=== PATIENT | female | born 2000 | race African-American/Black ===

== ENCOUNTER 2019-09-30 15:07 | Emergency (ER) | payer OTHER, SELFPAY ==
[2019-09-30 16:09] LABS: #Lymphocytes 1.7 thou/uL (1.20-3.40); #Monocytes 0.4 thou/uL (0.11-0.59); %Basophils 0.5 % (0.0-1.0); %Eosinophils 0.3 % (0.0-10.0); %Lymphocytes 20.4 % (28.0-48.0); %Monocytes 4.7 % (0.0-4.0); %Neutrophils 74.1 % (31.0-61.0); Hemoglobin 12.2 g/dL (12.0-16.0); Mean Corpuscular HGB CONC 33.4 g/dL (32.0-36.0); Mean Corpuscular Hemoglobin 28.6 pg (25.0-35.0); Mean Corpuscular Volume 85.6 fL (78.0-98.0); Mean Platelet Volume 6.2 fL (7.4-10.4); Platelet Count 290 thou/uL (130-400); RBC Distribution Width 12.1 % (11.5-14.5); Red Blood Cell (RBC) Count 4.26 mill/uL (4.00-5.20); White Blood Cell (WBC) Count 8.1 thou/uL (4.8-10.8)
[2019-09-30 16:11] LABS: BHCG - Serum POSITIVE (NEGATIVE); Pregs Control Background? CLEAR/WHITE (CLR/WHITE); Pregs Control Bar Appear? YES (CONTROL BAR)
[2019-09-30 16:33] LABS: ALT (SGPT) 29 U/L (8-55); AST (SGOT) 19 U/L (5-34); Albumin 4.3 g/dL (3.5-5.0); Alkaline Phosphatase 71 U/L (40-100); Anion Gap 12 mmol/L (10-20); BUN (Urea Nitrogen) 12 mg/dL (7.0-18.7); Bilirubin, Total 0.5 mg/dL (0.2-1.2); Calc. Creatinine Clearance 0 mL/min (70-130); Calcium 9.6 mg/dL (7.8-10.44); Carbon Dioxide 23 mmol/L (22-29); Chloride 107 mmol/L (98-107); Estimated GFR-MDRD Greater than 90; Globulin 3.1 g/dL (2.4-3.5); Glucose 124 mg/dL (70-105); Potassium 3.8 mmol/L (3.5-5.1); Protein, Total 7.4 g/dL (6.0-8.3); Sodium 138 mmol/L (136-145)
--- NOTE | 2019-09-30 19:50 | ULT ---
Pelvic ultrasound: 09/30/2019 COMPARISON: None HISTORY: 19-year-old female with pain TECHNIQUE: Multiplanar grayscale sonographic imaging of the pelvis obtained with transabdominal and e ndovaginal imaging. The ovaries were assessed with color flow and spectral analysis FINDINGS: Uterus measures 9.1 x 5.6 x 5.1 cm. Right ovary measures 3.5 x 2.6 x 1.8 cm and left ovary measures 4.3 x 3.3 x 2.5 cm. The ovaries demonstrate normal blood flow. Small volume free fluid is noted in the pelvic cul-de-sac. There is a small cyst within the left ovary measuring 2.6 x 2.4 x 2.1 cm. An intrauterine gestational sac is present. It appears to contain a yolk sac but no discrete po le at this time. No definite subchorionic hemorrhage. Gestational sac diameter of 9 mm correlates with a 5 week 5 day gestation. Estimated date of delivery would be 05/27/2020. IMPRESSION: Intrauterine gestational sac containing a yolk sac as above. Nonspecific small volume emelina e fluid. Ovaries demonstrate normal blood flow.
[2019-09-30 20:17] LABS: Bilirubin Negative (Negative); Blood, Urine Trace (Negative); Clarity Clear (Clear); Glucose, Urine (Dipstick) Normal (Negative); Leukocyte Negative Leu/uL (Negative); Nitrite Negative (Negative); Protein, Urine (Dipstick) Negative (Neg-Trace); RBC/HPF 0-3 HPF (0-3); Urobilinogen Normal mg/dL (Less than 2); WBC/HPF 0-3 HPF (0-3)
[2019-09-30 20:24] LABS: Bacteria/HPF None Seen HPF (None Seen)
[2019-10-02 01:16] LABS: Chlamydia by PCR Not Detected (NotDetected); GC by PCR Not Detected (NotDetected)
== END 2019-09-30 21:07 | disposition left against medical advice (07) ==
LOC: ERS 15:07
DX: O46.93 Antepartum hemorrhage, unspecified, third trimester (principal)
CPT/HCPCS: 36415; 76856; 80053; 81003; 81015; 84702; 84703; 85025; 86900; 86901; 87480; 87491; 87510; 87591; 87660

== ENCOUNTER 2019-10-12 12:55 | Emergency (ER) | payer SELFPAY ==
[2019-10-12 13:53] LABS: #Lymphocytes 1.4 thou/uL (1.20-3.40); #Monocytes 0.6 thou/uL (0.11-0.59); #Neutrophils 6.7 thou/uL (1.40-6.50); %Basophils 0.4 % (0.0-1.0); %Eosinophils 0.5 % (0.0-10.0); %Lymphocytes 16.1 % (28.0-48.0); %Monocytes 7.3 % (0.0-4.0); %Neutrophils 75.7 % (31.0-61.0); Hemoglobin 12.1 g/dL (12.0-16.0); Mean Corpuscular HGB CONC 34.4 g/dL (32.0-36.0); Mean Corpuscular Hemoglobin 29.2 pg (25.0-35.0); Mean Corpuscular Volume 85.1 fL (78.0-98.0); Mean Platelet Volume 6.4 fL (7.4-10.4); Platelet Count 303 thou/uL (130-400); RBC Distribution Width 11.9 % (11.5-14.5); Red Blood Cell (RBC) Count 4.12 mill/uL (4.00-5.20); White Blood Cell (WBC) Count 8.8 thou/uL (4.8-10.8)
[2019-10-12 14:08] LABS: ALT (SGPT) 25 U/L (8-55); AST (SGOT) 17 U/L (5-34); Albumin 4.5 g/dL (3.5-5.0); Alkaline Phosphatase 66 U/L (40-100); Anion Gap 15 mmol/L (10-20); BUN (Urea Nitrogen) 12 mg/dL (7.0-18.7); Bilirubin, Total 0.5 mg/dL (0.2-1.2); Calc. Creatinine Clearance 0 mL/min (70-130); Carbon Dioxide 21 mmol/L (22-29); Chloride 107 mmol/L (98-107); Estimated GFR-MDRD Greater than 90; Globulin 2.9 g/dL (2.4-3.5); Glucose 90 mg/dL (70-105); Potassium 3.7 mmol/L (3.5-5.1); Protein, Total 7.4 g/dL (6.0-8.3); Sodium 139 mmol/L (136-145)
--- NOTE | 2019-10-12 14:45 | ULT ---
EXAM: US Pelvic Transvag with Doppler PROVIDED CLINICAL HISTORY: Vaginal bleeding COMPARISON: None FINDINGS: A single live intrauterine gestation is documented, 5 weeks 5 days by crown-rump length. heart rate of 89 bpm was documented. There is a small amount of perigestational hemorrhage. Left ovarian corpus luteal cyst is demonstrated. Right ovary appears sonographically normal. Color Doppler and spe ctral analysis of the ovarian waveforms demonstrates normal flow bilaterally. There is a small amount of simple appearing free pelvic fluid. IMPRESSION: 1. Single live intrauterine gestation, 5 weeks 5 days by crown-rump length. 2. Small amount of perigestational hemorrhage. 3. bradycardia.
[2019-10-12 15:24] LABS: Bacteria/HPF 1+ HPF (None Seen); Bilirubin Negative (Negative); Blood, Urine 2+ (Negative); Clarity Clear (Clear); Glucose, Urine (Dipstick) Normal (Negative); Leukocyte Negative Leu/uL (Negative); Nitrite Negative (Negative); Protein, Urine (Dipstick) 10 mg/dL (Neg-Trace); RBC/HPF 0-3 HPF (0-3); Squamous Epithelial 0-3 HPF (0-3); Urobilinogen Normal mg/dL (Less than 2); WBC/HPF 0-3 HPF (0-3)
== END 2019-10-12 16:20 | disposition home or self-care (01) ==
LOC: ERS 12:55
DX: O20.0 Threatened abortion (principal); Z3A.01 Less than 8 weeks gestation of pregnancy
CPT/HCPCS: 36415; 76856; 80053; 81003; 81015; 84702; 85025; 86850; 86900; 86901

== ENCOUNTER 2019-11-21 19:04 | Emergency (ER) | payer SELFPAY ==
[2019-11-21 19:46] LABS: Hemoglobin 11.9 g/dL (12.0-16.0); Mean Corpuscular HGB CONC 33.3 g/dL (32.0-36.0); Mean Corpuscular Hemoglobin 29.4 pg (25.0-35.0); Mean Corpuscular Volume 88.1 fL (78.0-98.0); Mean Platelet Volume 6.8 fL (7.4-10.4); Platelet Count 275 thou/uL (130-400); RBC Distribution Width 11.6 % (11.5-14.5); Red Blood Cell (RBC) Count 4.04 mill/uL (4.00-5.20); White Blood Cell (WBC) Count 8.1 thou/uL (4.8-10.8)
[2019-11-21 20:04] LABS: Band 2 % (5-11); Eosinophils 1 % (0-10); Lymphocytes 25 % (28-48); MDiff Complete? YES; Monocytes 3 % (0-4); Neutrophil 69 % (31-61)
[2019-11-21 20:09] LABS: Bacteria/HPF None Seen HPF (None Seen); Bilirubin Negative (Negative); Blood, Urine 1+ (Negative); Clarity Clear (Clear); Glucose, Urine (Dipstick) Normal (Negative); Leukocyte 25 Leu/uL (Negative); Nitrite Negative (Negative); Protein, Urine (Dipstick) Negative (Neg-Trace); RBC/HPF 0-3 HPF (0-3); Urobilinogen Normal mg/dL (Less than 2); WBC/HPF 0-3 HPF (0-3)
--- NOTE | 2019-11-21 21:18 | ULT ---
PELVIC ULTRASOUND: 11/21/19 HISTORY: Positive beta HCG. Real time imaging of the pelvis was obtained transabdominally as well as with an endovaginal probe. T his shows a thickened endometrium and an irregularly shaped cystic structure within the endometrium. No yolk sac or pole are identified. The right and left ovaries are well visualized. There is a small follicle measuring 8 mm in size invo lving the left ovary. Some minimal free fluid noted. DOPPLER EVALUATION WITH SPECTRAL ANALYSIS: Normal flow is shown to both ovaries. IMPRESSION: Irregularly shaped cystic structure within the endometrium. This appears to represent an irregularly shape of a gestational sac. No pole or yolk sac are identified. POS: [facility]
[2019-11-21] MEDS ORDERED: Misoprostol 200 MCG TAB VAG SCH (23:00)
== END 2019-11-21 23:30 | disposition home or self-care (01) ==
LOC: ERS 19:04
DX: O03.4 Incomplete spontaneous abortion without complication (principal)
CPT/HCPCS: 36415; 76856; 81003; 81015; 84702; 85025; 86900; 86901

== ENCOUNTER 2021-03-04 07:04 | Outpatient (CLI) | payer OTHER | END 2021-03-04 07:05 | disposition home or self-care (01) | LOC: BICULT 07:04 | PROVIDERS: ATTEND Nurse Practitioner | DX: Z34.01 Encounter for supervision of normal first pregnancy, first trimester (principal); Z3A.01 Less than 8 weeks gestation of pregnancy | CPT/HCPCS: 76856 ==